=== PATIENT | female | born 1970 | race Caucasian/White ===

== ENCOUNTER 2016-06-02 10:56 | Emergency (ER) | payer SELFPAY ==
[2016-06-02 11:14] VITALS: TEMP 97
[2016-06-02] MEDS ORDERED: KETOROLAC TROMETHAMINE INJ 30 MG/ML VIAL IV ONE (11:17)
[2016-06-02] MEDS ORDERED: SODIUM CHLORIDE 0.9% 1000ML 1,000 ML IVS ONE (11:17)
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
--- NOTE | 2016-06-02 12:56 | CT ---
EXAM DESCRIPTION: Abdoment/Pelvis w/o Contrast CLINICAL HISTORY: Hematuria COMPARISON: None. TECHNIQUE: CT of the abdomen and pelvis was performed without contrast. Multiple axial images and multiplanar reconstructions were generated. FINDINGS: Lung bases: The visualized lung bases are clear. Solid organs: The liver, spleen, pancreas, kidneys, and adrenal glands are normal. Gastrointestinal: The stomach, small intestine, and large intestine are normal. Prior cholecystectomy. The appendix is normal. No free fluid or free air. Vascular: Mild atherosclerotic disease of a nonaneurysmal abdominal aorta. Lymph nodes: No pathologically enlarged lymph nodes are present by CT size criteria. Musculoskeletal and soft tissues: No destructive osseous lesions are present. Urinary bladder and pelvic organs: The urinary bladder is normal. IMPRESSION: 1. No findings to account for patient's hematuria. No definitive renal stone or obstruction on today's study. 2. Patient is status post cholecystectomy. Electronically signed by: Fabio Gonzalez MD 06/02/2016 12:56 PM CDT
[2016-06-02 13:20] VITALS: BP 123/83; O2SAT 99
== END 2016-06-02 13:20 | disposition home or self-care (01) ==
LOC: ER 10:56
DX: R31.29 Other microscopic hematuria (principal); M26.609 Unspecified temporomandibular joint disorder, unspecified side; G40.909 Epilepsy, unspecified, not intractable, without status epilepticus; Z79.899 Other long term (current) drug therapy; Z87.891 Personal history of nicotine dependence
CPT/HCPCS: 36415; 74176; 80053; 81001; 85025; 87086; J1885; J7030

== ENCOUNTER → 2019-08-02 | Outpatient (CLI) | payer OTHER | LOC: LAB.O 11:51 | PROVIDERS: ATTEND Registered Nurse General Practice | DX: B97.21 SARS-associated coronavirus as the cause of diseases classified elsewhere (principal) ==

== ENCOUNTER 2019-09-25 08:25 | Emergency (ER) | payer OTHER ==
[2019-09-25] MEDS ORDERED: SODIUM CHLORIDE 0.9% (FLUSH) 10 ML SYG IV PRN (08:50)
[2019-09-25] MEDS ORDERED: SODIUM CHLORIDE 0.9% 1000ML 1,000 ML IVS ONE (08:55)
[2019-09-25] MEDS ORDERED: ONDANSETRON INJ 4 MG/2 ML VIAL IV ONE (08:57)
--- NOTE | 2019-09-25 09:14 | ED.PDOC ---
History of Present Illness - General Chief Complaint: General Stated Complaint: NOT FEELING WELL Time Seen by Provider: 09/25/19 08:50 Source: patient, RN notes reviewed, Vital Signs reviewed Exam Limitations: no limitations - History of Present Illness Initial Comments: Patient is a 49-year-old white female who presents with generalized weakness, malaise, fatigue and shakiness. Patient states that she is been having cough, nonproductive, no fevers. The symptoms have been going on 2 to 3 days. Nothing seems to make them better or worse. Timing/Duration: constant, getting worse, other - 2 to 3 days Severity: moderate Improving Factors: nothing Worsening Factors: nothing Associated Symptoms: cough, loss of appetite, malaise, nausea/vomiting - Nausea only, weakness Allergies/Adverse Reactions: Allergies NO KNOWN ALLERGY Allergy (Verified 01/06/16 14:55) Home Medications: Ambulatory Orders Divalproex Sodium ER [Depakote ER] 1,000 mg PO BEDTIME 01/06/16 Citalopram Hydrobromide 20 mg PO DAILY 06/02/16 Dicyclomine HCl 20 mg PO QID PRN 06/02/16 Diphenoxylate/Atropine [Lomotil Tab] 2.5 mg PO PRN 06/02/16 Fluticasone Propionate (Nasal) [Eql Fluticasone Propionat] 50 mcg NA DAILY Naproxen [Naprosyn] 500 mg PO BID #30 tab 06/02/16 Ondansetron [Zofran Odt] 4 mg PO PRN 06/02/16 Pantoprazole Tablet [Protonix] 40 mg PO DAILY 06/02/16 Perphenazine 4 mg PO BID 06/02/16 Sulfamethoxazole-Trimethoprim [Bactrim Ds 800-160 mg] 1 tab PO BID #14 tab 06/02/16 Ondansetron [Ondansetron Odt] 4 mg PO Q6H #12 tab 09/25/19 Review of Systems - Review of Systems Constitutional: States: see HPI, malaise, weakness. Denies: chills, fever EENTM: States: no symptoms reported. Denies: eye pain, blurred vision, double vision, nose congestion Respiratory: States: see HPI, cough, short of breath - With cough. Denies: stridor, wheezing Cardiology: States: no symptoms reported. Denies: chest pain, palpitations, syncope Gastrointestinal/Abdominal: States: see HPI, nausea. Denies: abdominal pain, diarrhea, vomiting Genitourinary: States: no symptoms reported. Denies: discharge, dysuria Musculoskeletal: States: no symptoms reported. Denies: joint pain, neck pain Skin: States: no symptoms reported. Denies: change in color, rash Neurological: States: see HPI, anxiety, weakness. Denies: numbness, paresthesia, tremors Endocrine: States: no symptoms reported Hematologic/Lymphatic: States: no symptoms reported All other Systems: No Change from Baseline Past Medical History (General) - Patient Medical History Hx Seizures: Yes - Epilepsy Hx Stroke: No Hx Dementia: No Hx Asthma: No Hx of COPD: No Hx Cardiac Disorders: No Hx Congestive Heart Failure: No Hx Pacemaker: No Hx Hypertension: No Hx Thyroid Disease: No Hx Diabetes: No Hx Gastroesophageal Reflux: No Hx Renal Disease: No Hx Cancer: No Hx of HIV: No Hx Hepatitis C: No Hx MRSA: No Surgical History: cholecystectomy - Vaccination History Hx Tetanus, Diphtheria Vaccination: No Hx Influenza Vaccination: No - Social History Hx Tobacco Use: Yes Hx Chewing Tobacco Use: No Hx Alcohol Use: Yes Hx Substance Use: No Hx Substance Use Treatment: No Hx Depression: Yes Hx Physical Abuse: No Hx Emotional Abuse: No Hx Suspected Abuse: No - Activities of Daily Living Hospice Agency (if applicable):: None - Female History Patient : No Family Medical History - Family History Mother Family History: No Known Living Status: Still Living Physical Exam - Physical Exam General Appearance: Alert, Anxious, Well Developed, Well Groomed, Well Hydrated, Well Nourished Eye Exam: bilateral normal Ears, Nose, Throat: hearing grossly normal, normal ENT inspection, normal pharynx Neck: non-tender, full range of motion, supple Respiratory: chest non-tender, lungs clear, no respiratory distress, no accessory muscle use, rhonchi - Diffusely throughout Cardiovascular/Chest: normal peripheral pulses, no edema, no gallop, no JVD, no murmur, tachycardia Peripheral Pulses: radial,right: 2+, radial,left: 2+ Gastrointestinal/Abdominal: normal bowel sounds, non tender, soft Rectal Exam: deferred Back Exam: normal inspection, no CVA tenderness, no vertebral tenderness Extremity: normal range of motion, non-tender, normal inspection 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 09/25/19 11:45 Patient is markedly improved after IV fluids and IV Zofran. Her heart rate is come down nicely. His blood pressure has improved. Patient's Depakote level is low at 33 and I have recommended an extra tablet of Depakote medication today. I plan on discharging patient home for follow-up with PCP in the next 2 to 3 days. I will prescribe some Zofran ODT for nausea. I have recommended increased liquid consumption. Patient voices understanding and agreement with plan of care. Yang Dalton M.D. #[id number] - Results/Orders Results/Orders: 09/25/19 08:50 Sodium Chloride 0.9% (Flush) [Saline Flush Syringe] 3 ml IV PRN PRN 09/25/19 09:00 EKG STAT Pulse Ox Daily 09/25/19 09:05 CARDIAC PANEL,ER Stat HEPATIC FUNCTION PANEL Stat STREP A SCREEN CULTURE Stat Laboratory Results - last 24 hr 09/25/19 09/25/19 09/25/19 09:05 09:05 09:05 PT 9.8 INR < 1.00 PTT (SP) 25.9 Sodium 138 Potassium 4.0 Chloride 106 Carbon Dioxide 23 Anion Gap 13.0 BUN 14 Creatinine 0.71 BUN/Creatinine Ratio 19.7 Random Glucose 99 Serum Osmolality 276.2 Calcium 9.5 Magnesium 1.7 L Total Bilirubin 0.8 Direct Bilirubin 0.1 Indirect Bilirubin 0.7 AST 18 ALT 21 Alkaline Phosphatase 64 Creatine Kinase 98 CK-MB (CK-2) 2.0 CK-MB (CK-2) % Not Reportable Troponin I < 0.02 Serum Total Protein 7.7 Albumin 4.1 Urine Color Urine Appearance Urine pH Ur Specific [place] Urine Protein Urine Glucose (UA) Urine Ketones Urine Blood Urine Nitrite Urine Bilirubin Urine Urobilinogen Ur Leukocyte Esterase Urine RBC Urine WBC Ur Epithelial Cells Amorphous Sediment Urine Bacteria Valproic Acid 33.0 L Group A Strep Rapid Negative 09/25/19 09:20 PT INR PTT (SP) Sodium Potassium Chloride Carbon Dioxide Anion Gap BUN Creatinine BUN/Creatinine Ratio Random Glucose Serum Osmolality Calcium Magnesium Total Bilirubin Direct Bilirubin Indirect Bilirubin AST ALT Alkaline Phosphatase Creatine Kinase CK-MB (CK-2) CK-MB (CK-2) % Troponin I Serum Total Protein Albumin Urine Color Yellow Urine Appearance Clear Urine pH 8.5 H Ur Specific [place] 1.015 Urine Protein Negative Urine Glucose (UA) Negative Urine Ketones Negative Urine Blood Moderate H Urine Nitrite Negative Urine Bilirubin Negative Urine Urobilinogen 0.2 Ur Leukocyte Esterase Negative Urine RBC 40-50 H Urine WBC 0 Ur Epithelial Cells 1-3 Amorphous Sediment Trace Urine Bacteria Rare Valproic Acid Group A Strep Rapid Vital Signs 09/25/19 09/25/19 09/25/19 08:30 08:39 10:30 Temperature 98.8 F Pulse Rate [ 109 H 109 H 82 brachial] Respiratory 22 22 12 Rate Blood Pressure 179/102 147/110 [Left Arm] O2 Sat by Pulse 99 98 Oximetry Departure - Departure Clinical Impression: Dehydration, Common cold virus Time of Disposition: 11:49 Disposition: Discharge to Home or Self Care Condition: Good Departure Forms: ED Discharge - Pt. Copy, Patient Portal Self Enrollment Diet: resume usual diet Activity: increase activity as tolerated Referrals: PAMELA CONRAD IV, [facility] [Primary Care Provider] - 1-5 Days Prescriptions: Ondansetron [Ondansetron Odt] 4 mg PO Q6H #12 tab Home Medications: Ambulatory Orders Divalproex Sodium ER [Depakote ER] 1,000 mg PO BEDTIME 01/06/16 Citalopram Hydrobromide 20 mg PO DAILY 06/02/16 Dicyclomine HCl 20 mg PO QID PRN 06/02/16 Diphenoxylate/Atropine [Lomotil Tab] 2.5 mg PO PRN 06/02/16 Fluticasone Propionate (Nasal) [Eql Fluticasone Propionat] 50 mcg NA DAILY 06/02/16 Naproxen [Naprosyn] 500 mg PO BID #30 tab 06/02/16 Ondansetron [Zofran Odt] 4 mg PO PRN 06/02/16 Pantoprazole Tablet [Protonix] 40 mg PO DAILY 06/02/16 Perphenazine 4 mg PO BID 06/02/16 Sulfamethoxazole-Trimethoprim [Bactrim Ds 800-160 mg] 1 tab PO BID #14 tab 06/02/16 Ondansetron [Ondansetron Odt] 4 mg PO Q6H #12 tab 09/25/19
--- NOTE | 2019-09-25 09:49 | RAD ---
EXAM DESCRIPTION: Chest,1 View CLINICAL HISTORY: 49 years Female, Cough COMPARISON: None. TECHNIQUE: AP portable chest. FINDINGS: Heart size is normal with normal pulmonary vascularity. No consolidating infiltrate. No pulmonary mass or worrisome nodule. No pneumothorax or pleural effusion. Bones are unremarkable. IMPRESSION: No acute process is identified in the chest. Electronically signed by: Reza Huynh MD 09/25/2019 9:47 AM CDT
[2019-09-25 12:03] VITALS: BP 160/118; TEMP 97.8; O2SAT 97
== END 2019-09-25 12:01 | disposition home or self-care (01) ==
LOC: ER 08:25
DX: E86.0 Dehydration (principal); J00 Acute nasopharyngitis [common cold]; R53.1 Weakness; G40.909 Epilepsy, unspecified, not intractable, without status epilepticus; F17.200 Nicotine dependence, unspecified, uncomplicated; Z79.899 Other long term (current) drug therapy
CPT/HCPCS: 36415; 71045; 80048; 80076; 80164; 81001; 82550; 82553; 84484; 85025; 85610; 85730; 87070; 87635; 87880; 93005; J2405; J7030

== ENCOUNTER → 2020-04-25 | Outpatient (CLI) | payer OTHER ==
--- NOTE | 2020-04-29 14:58 | MAM ---
EXAM DESCRIPTION: 3D Screening BILATERAL : Digital Mammography. CLINICAL HISTORY: 50 years Female SCREEN . No complaints and no family history of breast cancer. Menarche age 12. Childbirth age 21. Menopause age 39. No HRT. Lifetime risk of developing breast cancer (Tyrer-Cuzick model)(%): 7.1. COMPARISON: Baseline study at this facility. No prior reports available. TECHNIQUE: Bilateral CC and MLO projection full-field images, digital tomosynthesis mammographic technique. Bilateral digital 2-D full-field MLO images. CAD available for 2-D images. FINDINGS: The breast parenchymal density pattern is: Scattered areas of fibroglandular density. Solitary microcalcifications. No skin thickening or nipple retraction No focal, stellate mass or density, focal asymmetry , and no suspicious microcalcifications bilaterally. IMPRESSION: Benign exam. BIRAD CATEGORY: 2 BENIGN FINDINGS. RECOMMENDATIONS: FOLLOW UP: Routine digital bilateral mammographic screening, one year interval from April 2020. Written communication explaining the IMPRESSION and follow-up, will be mailed to the patient and referring health care provider. According to the [employer], yearly mammograms are recommended starting at age 40 and continuing as long as a woman is in good health. Any breast change noted on a breast self-exam should be reported promptly to the patient's healthcare provider. Breast MRI is recommended for women with an approximately 20-25% or greater lifetime risk of breast cancer, including women with a strong family history of breast or ovarian cancer and women who have been treated for Hodgkin's disease. A negative mammographic report should not delay tissue diagnosis in patients with significant clinical history or physical findings. Extremely dense breast tissue limits the sensitivity of digital mammography. Electronically signed by: Denys Boswell MD 04/29/2020 2:56 PM [facility]
== END ==
LOC: MAMMO 08:02
PROVIDERS: ATTEND Nurse Practitioner Family
DX: Z12.31 Encounter for screening mammogram for malignant neoplasm of breast (principal)